=== PATIENT | female | born 1995 | race Caucasian/White ===

== ENCOUNTER 2017-07-09 09:55 | Outpatient (CLI) | payer OTHER ==
[2017-07-09 10:48] LABS: ALT (SGPT) 22 U/L (8-55); AST (SGOT) 20 U/L (5-34); Alkaline Phosphatase 71 U/L (40-150); Anion Gap 12 mmol/L (10-20); BUN (Urea Nitrogen) 10 mg/dL (7.0-18.7); Bilirubin, Total 0.6 mg/dL (0.2-1.2); Calc. Creatinine Clearance 0 mL/min (70-130); Calcium 8.9 mg/dL (7.8-10.44); Carbon Dioxide 24 mmol/L (22-29); Chloride 107 mmol/L (98-107); Cholesterol 179 mg/dl (< 200 Desired); Estimated GFR-MDRD Greater than 90; Globulin 3.2 g/dL (2.4-3.5); LDL Cholesterol, Calculated 106 mg/dL
[2017-07-09 10:52] LABS: Bilirubin Negative (Negative); Blood, Urine Moderate (Negative); Glucose, Urine (Dipstick) Negative (Negative); Ketone, Urine Negative (Negative); Nitrite Negative (Negative); Protein, Urine (Dipstick) Negative (Neg-Trace); Urobilinogen 0.2 mg/dL (0.2-1.0)
[2017-07-09 12:02] LABS: WBC/HPF 0-3 HPF (0-3)
[2017-07-09 12:04] LABS: Bacteria/HPF None Seen HPF (None Seen)
[2017-07-09 13:18] LABS: #Basophils 0.1 thou/uL (0.0-0.2); #Eosinphils 0.1 thou/uL (0.0-0.7); #Lymphocytes 3.1 thou/uL (1.20-3.40); #Monocytes 0.6 thou/uL (0.11-0.59); #Neutrophils 4.7 thou/uL (1.40-6.50); %Basophils 1.4 % (0.0-1.0); %Eosinophils 1.5 % (0.0-10.0); %Lymphocytes 35.8 % (21.0-51.0); %Monocytes 6.6 % (0.0-10.0); Hematocrit 40.7 % (36.0-47.0); Mean Platelet Volume 6.8 fL (7.4-10.4); Red Blood Cell (RBC) Count 4.26 mill/uL (4.20-5.40); White Blood Cell (WBC) Count 8.6 thou/uL (4.8-10.8)
--- NOTE | 2017-07-09 13:22 | RAD ---
TWO VIEWS CHEST: History: Sternal pain. FINDINGS: Normal cardiac silhouette. The pulmonary vessels and hilum are normal. Costophrenic angles are clear . No masses or consolidation. No pneumothorax. Scoliosis of the thoracic spine with rightward curvat ure is noted. IMPRESSION: No acute cardiopulmonary process. POS: [facility]
--- NOTE | 2017-07-09 13:29 | RAD ---
SCOLIOSIS STUDY: History: Assess scoliosis, history of chest pain for one month. Comparison: 01-21-12 FINDINGS: The S-shaped scoliotic curve involving the cervical and lumbar spine is stable in appearance. The ri ghtward curvature is centered at the T7-8 vertebral level and measures approximately 39 degrees whic h is stable. The leftward curvature of the lumbar spine is stable measuring 28 degrees. No acute oss eous abnormality is evident. Visualized lungs are clear. IMPRESSION: Stable thoracolumbar scoliosis. POS: [facility]
== END 2017-07-09 09:56 | disposition home or self-care (01) ==
LOC: SCSRAD 09:55
PROVIDERS: ATTEND Nurse Practitioner Family
DX: R07.89 Other chest pain (principal); M54.6 Pain in thoracic spine; M54.5 Low back pain; J30.1 Allergic rhinitis due to pollen; M41.125 Adolescent idiopathic scoliosis, thoracolumbar region
CPT/HCPCS: 36415; 71020; 72081; 80053; 80061; 81001; 84443; 85025

== ENCOUNTER 2017-11-16 00:22 | Emergency (ER) | payer OTHER, SELFPAY ==
[2017-11-16] MEDS ORDERED: Pantoprazole 40 MG VIAL ONE (00:37)
[2017-11-16] MEDS ORDERED: Ondansetron HCl/PF 4 MG/2 ML Vial ONE (00:37)
[2017-11-16 00:55] LABS: #Basophils 0.1 thou/uL (0.0-0.2); #Eosinphils 0.1 thou/uL (0.0-0.7); #Lymphocytes 3.8 thou/uL (1.20-3.40); #Monocytes 0.5 thou/uL (0.11-0.59); #Neutrophils 4.1 thou/uL (1.40-6.50); %Basophils 1.1 % (0.0-1.0); %Lymphocytes 44.2 % (21.0-51.0); %Monocytes 5.3 % (0.0-10.0); %Neutrophils 48.5 % (42.0-75.0); Hemoglobin 13.5 g/dL (12.0-16.0); Mean Corpuscular HGB CONC 35.1 g/dL (32.0-36.0); Mean Corpuscular Hemoglobin 30.6 pg (27.0-31.0); Mean Corpuscular Volume 87.3 fl (81.0-99.0); Mean Platelet Volume 8.7 fL (7.4-10.4); Platelet Count 236 thou/uL (130-400); RBC Distribution Width 10.8 % (11.5-14.5); Red Blood Cell (RBC) Count 4.41 mill/uL (4.20-5.40); White Blood Cell (WBC) Count 8.5 thou/uL (4.8-10.8)
[2017-11-16 01:02] LABS: ALT (SGPT) 30 U/L (8-55); AST (SGOT) 26 U/L (5-34); Albumin 3.7 g/dL (3.5-5.0); Alkaline Phosphatase 78 U/L (40-150); Anion Gap 15 mmol/L (10-20); BUN (Urea Nitrogen) 7 mg/dL (7.0-18.7); Bilirubin, Total 0.5 mg/dL (0.2-1.2); Calc. Creatinine Clearance 0 mL/min (70-130); Calcium 8.9 mg/dL (7.8-10.44); Carbon Dioxide 20 mmol/L (22-29); Chloride 108 mmol/L (98-107); Estimated GFR-MDRD Greater than 90; Globulin 3.3 g/dL (2.4-3.5); Glucose 96 mg/dL (70-105); Lipase 20 U/L (8-78); Potassium 3.8 mmol/L (3.5-5.1); Sodium 139 mmol/L (136-145)
[2017-11-16 01:36] LABS: Bilirubin Negative (Negative); Blood, Urine Moderate (Negative); Clarity Slightly Cloudy (Clear); Glucose, Urine (Dipstick) Negative (Negative); Leukocyte Negative (Negative); Nitrite Negative (Negative); Pregnancy Test - Urine (BHCG) Negative (Negative); Pregu Control Background? CLEAR/WHITE (CLR/WHITE); Pregu Control Bar Appear? YES (CONTROL BAR); Protein, Urine (Dipstick) Negative (Neg-Trace); Specific Gravity 1.015 (1.002-1.036); Specific Gravity, Urine 1.015 (1.005-1.030); Urobilinogen 0.2 mg/dL (0.2-1.0)
[2017-11-16 01:46] LABS: Bacteria/HPF 2+ HPF (None Seen); Hyaline Casts/LPF NONE SEEN LPF (0-3 Hyaline); RBC/HPF 0-3 HPF (0-3); WBC/HPF 0-3 HPF (0-3)
== END 2017-11-16 01:58 | disposition home or self-care (01) ==
LOC: SCSER 00:22
DX: B34.9 Viral infection, unspecified (principal); R19.7 Diarrhea, unspecified
CPT/HCPCS: 80053; 81003; 81015; 81025; 83690; 85025; 96361; 96374; 96375; C9113; J2405

== ENCOUNTER 2019-01-14 08:09 | Outpatient (CLI) | payer BC, MEDICAID ==
--- NOTE | 2019-01-14 13:48 | MRI ---
EXAM: MRI lumbar spine without contrast HISTORY: Multiple sclerosis. Tingling in the pain and feet COMPARISON: None TECHNIQUE: Multiple planar multisequence MR images were obtained of the lumbar spine without contrast . FINDINGS: The vertebral bodies and intervertebral discs demonstrate normal height and alignment without fractur e or subluxation. The prevertebral and paraspinal soft tissues are unremarkable. No marrow signal abnormality is present. The conus medullaris terminates normally at T12/L1. No abnormal signal is seen in the visualized dist al cord. T12/L1: No significant posterior bulge or protrusion. No posterior facet arthrosis. No central debbie l stenosis. No neural foraminal stenosis L1/2: No significant posterior bulge or protrusion. No posterior facet arthrosis. No central canal stenosis. No neural foraminal stenosis L2/3: No significant posterior bulge or protrusion. No posterior facet arthrosis. No central canal stenosis. No neural foraminal stenosis L3/4: No significant posterior bulge or protrusion. No posterior facet arthrosis. No central canal stenosis. No neural foraminal stenosis L4/5: A small generalized concentric disc bulge is seen. No posterior facet arthrosis. No central c anal stenosis. No neural foraminal stenosis L5/S1: A minimal generalized concentric disc bulge is seen. No posterior facet arthrosis. No centra l canal stenosis. No neural foraminal stenosis IMPRESSION: No significant lumbar spine abnormality.
--- NOTE | 2019-01-14 14:58 | MRI ---
MRI Brain W WO Con EXAM: MRI of the brain without and with contrast HISTORY: Multiple sclerosis COMPARISON: None TECHNIQUE: Multiplanar multisequence MR images were obtained of the brain without and with IV contras t. FINDINGS: The brain demonstrates normal signal intensity on all obtained sequences. No restricted diffusion. No abnormal enhancement. No hydronephrosis. No extra-axial fluid collection or intracranial hemorrhage. No abnormal foci of T2 prolongation are seen in the white matter. The expected flow voids are present. Corpus callosum, pituitary, and craniocervical junction are within normal limits. The calvarium and overlying soft tissues are unremarkable. The paranasal sinuses and mastoid air cells are well aerated. IMPRESSION: Normal exam.
== END 2019-01-14 08:10 | disposition home or self-care (01) ==
LOC: SCSMRI 08:09
PROVIDERS: ATTEND Psychiatry & Neurology Neurology
DX: G35 Multiple sclerosis (principal)
CPT/HCPCS: 70553; 72148